=== PATIENT | female | born 1965 | race Caucasian/White ===

== ENCOUNTER 2016-12-07 17:23 | Emergency (ER) | payer OTHER ==
--- NOTE | ~2016-12-07 | ER ---
PATIENT'S NAME: ALLISON OTTO [facility] AGE: 51 Y [address] ROOM: [place] [id number] LOCATION: ED ADMIT DATE: 12/07/2016 ER/Outpatient Report DISCHARGE DATE: 12/07/2016 FAMILY PHYSICIAN: Ochoa Cunningham MD ATTENDING PHYSICIAN: Isadora Parr Time of Arrival: 1730 hours. Time of Evaluation: 1738 hours. CHIEF COMPLAINT: Right flank pain. HISTORY OF PRESENT ILLNESS: The patient states she has been having right flank pain that radiates up her back but also down and around in the right lower quadrant of her abdomen. The pain began on 12/05/2016. She states her last bowel movement was on 12/04/2016. Reports she has not had much to eat since the pain started on . She has been nauseated but no vomiting. Denies having any urinary frequency or discomfort. Describes the pain as being dull, there all the time, and occasionally sharp. PAST MEDICAL HISTORY: Benign. PAST SURGICAL HISTORY: , hysterectomy, and bilateral knees. SOCIAL HISTORY: Denies use of tobacco or drugs. Drinks alcohol on a social basis only. REVIEW OF SYSTEMS: All negative other than those mentioned in the HPI. PHYSICAL EXAMINATION: VITAL SIGNS: She weights 88.3 kg, blood pressure is 151/86, pulse of 102, respirations 16, temperature of 98.1, O2 saturation is 95% on room air. GENERAL: She is awake, alert, and oriented x4. SKIN: [place], warm, and dry. RESPIRATIONS: Even and nonlabored. Lung sounds are clear throughout. HEART: Regular rate and rhythm. ABDOMEN: Soft, nondistended. Bowel sounds are present. She is tender in the right flank area. EMERGENCY DEPARTMENT COURSE: Saline lock was initiated. The patient was given Toradol 30 mg IV. Fluids PATIENT'S NAME: ALLISON OTTO [facility] AGE: 51 Y [address] ROOM: [place] [address] LOCATION: ED ADMIT DATE: 12/07/2016 ER/Outpatient Report DISCHARGE DATE: 12/07/2016 FAMILY PHYSICIAN: Ochoa Cunningham MD ATTENDING PHYSICIAN: Isadora Parr were started. LABORATORY DATA AND X-RAYS: CBC is within normal limits. Chem panel is within normal limits. Clean-catch UA was negative leukocytes, negative nitrites, negative blood, white cells were 0-2, few bacteria. CT scan with contrast was completed. It shows the distal colon is collapsed. There is mildly increased stool and fluid contents in the proximal colon, typical for an ileus. Appendix is normal. No bowel obstruction is seen. She does have some inflammatory changes of T10 through T12. The patient was reviewed with Dr. Soliman. Dr. Cunningham, her primary provider, was contacted. He would like the patient to get 2 L of fluid here in the ER and then be discharged home with some pain medicine, to follow up with him on Friday. Second liter of fluid was started. The patient states she is feeling better after the Toradol. Plan of care was reviewed with her. She agrees with the plan of care. IMPRESSION: 1. Ileus. 2. Thoracic inflammation. PLAN: Home, rest, fluids. Avoid milk products. Prescription was written for tramadol for pain. Follow up with Dr. Cunningham on Friday as he recommended. She verbalizes understanding. LAURA ROBBINS APRN FOR MD JAQUELIN LUCAS/rubi /[id number] d: 12/07/16 2359 t: 12/14/16 2019, OUTPATIENT REPORT
[2016-12-07 17:47] LABS: BILIRUBIN URINE NEGATIVE (NEGATIVE); BLOOD URINE NEGATIVE /UL (NEGATIVE); COLOR URINE YELLOW (YELLOW); GLUCOSE URINE NEGATIVE (NEGATIVE); KETONE URINE 150 mg/dL (NEGATIVE); LEUKOCYTES URINE NEGATIVE /UL (NEGATIVE); NITRITE URINE NEGATIVE (NEGATIVE); PROTEIN URINE 15 mg/dL (NEGATIVE); SPEC GRAVITY URINE 1.015 (1.003-1.035); TURBIDITY URINE CLEAR (CLEAR); UROBILINOGEN URINE NORMAL (NORMAL)
[2016-12-07 18:05] LABS: BASOPHIL % 0.2 %; EOSINOPHIL % 0.1 %; HEMATOCRIT 39.6 % (33.0-46.0); HEMOGLOBIN 13.5 g/dL (10.0-15.0); IMMATURE GRANULOCYTE % 0.3 %; LYMPHOCYTE # 1.6 K/uL (0.8-4.0); LYMPHOCYTE % 14.7 %; MCH 31.3 pg (27.0-34.0); MCHC 34.1 gm/dL (32.0-36.5); MCV 91.9 fl (83.0-98.0); MONOCYTE # 0.9 K/uL (0.0-1.0); MONOCYTE % 8.6 %; MPV 8.7 fl (9.4-12.4); NEUTROPHIL # (ANC) 8.4 K/uL (1.8-7.8); NEUTROPHIL % 76.1 %; NRBC % 0 /100WBC (0-0.00); PLATELET COUNT 263 K/uL (150-450); RBC 4.31 M/uL (3.50-5.50); RDW-CV 12.8 % (11.9-14.6)
[2016-12-07 18:06] LABS: BACTERIA URINE FEW (NEGATIVE); EPITHELIAL URINE 0-2 #/HPF (NEGATIVE); RBC URINE 0-2 #/HPF (NEGATIVE); WBC URINE 0-2 #/HPF (NEGATIVE)
[2016-12-07 18:22] LABS: ALBUMIN 3.6 gm/dL (3.5-5.0); ALK PHOS 86 IU/L (33-138); ALT 30 IU/L (12-78); ANION GAP 13.9 (10.0-19.0); AST 13 IU/L (10-40); BLOOD UREA NITROGEN 5 mg/dL (6-24); CHLORIDE 102 mMol/L (96-110); CO2 25 mMol/L (22-32); CREATININE 0.6 mg/dL (0.5-1.1); ESTIMATED GFR (MDRD EQUATION) > 60; POTASSIUM 3.9 mMol/L (3.7-5.1); SODIUM 137 mMol/L (135-145); TOTAL BILIRUBIN 0.4 mg/dL (0.0-1.5)
== END 2016-12-07 20:43 | disposition disaster alternative care site (69) ==
LOC: GMED 17:23
PROVIDERS: Family Medicine; Nurse Practitioner Family
DX: K56.7 Ileus, unspecified (principal); M46.94 Unspecified inflammatory spondylopathy, thoracic region; Z90.710 Acquired absence of both cervix and uterus; Z98.890 Other specified postprocedural states; Z79.899 Other long term (current) drug therapy
CPT/HCPCS: J1885; J7030; Q9967